=== PATIENT | male | born 1960 | race African-American/Black ===

== ENCOUNTER → 2018-01-18 | Outpatient (CLI) | payer OTHER ==
[~2018-01-18] MED LIST: CHOL100030 PO; SIMV20TA6 PO
== END | disposition home or self-care (01) ==
LOC: RADPV 14:50
PROVIDERS: ATTEND Internal Medicine Cardiovascular Disease
DX: R60.0 Localized edema (principal); I25.9 Chronic ischemic heart disease, unspecified; I70.229 Atherosclerosis of native arteries of extremities with rest pain, unspecified extremity; R94.31 Abnormal electrocardiogram [ECG] [EKG]
CPT/HCPCS: 71046

== ENCOUNTER 2020-02-21 15:38 | Emergency (ER) | payer OTHER ==
[~2020-02-21] VITALS: Ht 154.9 cm; Wt 70.5 kg
[~2020-02-21 15:38] MED LIST changes: +SIMV-43 PO; -SIMV20TA6 PO
[2020-02-21 18:33] VITALS: BP 128/70
== END 2020-02-21 18:34 | disposition home or self-care (01) ==
LOC: EMS 15:40
DX: L91.8 Other hypertrophic disorders of the skin (principal); Z88.0 Allergy status to penicillin; Z88.2 Allergy status to sulfonamides; Z88.5 Allergy status to narcotic agent; Z88.6 Allergy status to analgesic agent